=== PATIENT | female | born 1965 | race Hispanic/Latino ===

== ENCOUNTER 2022-04-25 08:56 | Observation (INO) | payer MEDICARE, MEDICAID ==
[~2022-04-25] VITALS: Ht 170.2 cm; Wt 85.6 kg
[2022-04-25] VITALS (7 sets, daily range): BP systolic 114–136; BP diastolic 68–81
[~2022-04-25 08:56] MED LIST: ADV500INH INH; BISO5TAB14 PO; BUSP5TA PO; CALC1CAP31 PO; CETI10CH PO; CLINDAMYCIN 900 MG in IV 1 EA IV ONE; FAMO20TA PO; LETR2.5T2 PO; MAG-400T7 PO; MONT10TA97 PO; SYNT125T PO; TRAZ-257 PO; TUMS750C5 PO; VENTAER INH
[2022-04-25] MEDS ORDERED: dexameTHASONE 4 MG/ML 1ML VIAL (J1100 PER 1MG) As Ordered ONE (09:28)
[2022-04-25] MEDS ORDERED: LIDOCAINE 2% 100MG/5ML SDV (FOR ANES.) As Ordered ONE ×2 (09:29→11:12)
[2022-04-25] MEDS ORDERED: LR 1,000 ML IV SCH ×2 (09:35→12:55)
[2022-04-25] MEDS ORDERED: HEPARIN SOD (PORCINE) 5000UNITS/ML 1ML VIAL/SYRINGE SQ ONE (09:50)
[2022-04-25] MEDS ORDERED: MIDAZOLAM INJ 2MG/2ML VIAL (J2250 PER 1MG) As Ordered ONE (09:52)
[2022-04-25] MEDS ORDERED: fentaNYL 100 MCG/2 ML INJECTION As Ordered ONE (09:53)
[2022-04-25] MEDS ORDERED: GENTAMICIN SULF 80MG/2ML VIAL As Ordered ONE (10:07)
[2022-04-25] MEDS ORDERED: BUPIVACAINE LIPOSOME/PF 1.3% 20ML VIAL (13.3MG/ML)(EXPAREL) As Ordered ONE (10:07)
[2022-04-25] MEDS ORDERED: BUPIVACAINE HCL 0.25% 10ML VIAL As Ordered ONE (10:07)
[2022-04-25] MEDS ORDERED: ROCURONIUM BROMIDE 50 MG/5 ML VIAL As Ordered ONE (11:13)
[2022-04-25] MEDS ORDERED: ALBUTEROL 6.7GM INHALER **FOR ANES. CART/OMNICELL ONLY As Ordered ONE (11:23)
[2022-04-25] MEDS ORDERED: PHENYLephrine 500MCG 5ML (100MCG/ML) SYRINGE As Ordered ONE ×2 (11:26→12:20)
[2022-04-25] MEDS ORDERED: ePHEDrine SULFATE 25 MG/5 ML(5MG/ML) SYRINGE As Ordered ONE (12:04)
[2022-04-25] MEDS ORDERED: ONDANSETRON 4MG 2ML VIAL As Ordered ONE (12:04)
[2022-04-25] MEDS ORDERED: propofoL 200 MG/20 ML VIAL As Ordered ONE (12:04)
[2022-04-25] MEDS ORDERED: ACETAMINOPHEN 1000MG 100ML IV BTL (OFIRMEV) (J0131 PER 10MG) As Ordered ONE (12:08)
[2022-04-25] MEDS ORDERED: SUGAMMADEX SODIUM 500 MG/5 ML VIAL (BRIDION) As Ordered ONE (12:18)
[2022-04-25] MEDS ORDERED: oxyCODONE 5MG TAB PO PRN (12:55)
[2022-04-25] MEDS ORDERED: ONDANSETRON 4MG 2ML VIAL IV PRN ×2 (12:55→13:00)
[2022-04-25] MEDS ORDERED: HYDROMORPHONE HCL 0.5 MG/ 0.5 ML SYRINGE (J1170 PER 1) IV PRN (12:55)
[2022-04-25] MEDS ORDERED: fentaNYL 100 MCG/2 ML INJECTION IV PRN (12:55)
[2022-04-25] MEDS ORDERED: METOCLOPRAMIDE INJ 10MG/2ML VIAL (J2765 PER 1) IV PRN (12:55)
[2022-04-25] MEDS ORDERED: PERCOCET 5MG/325MG TAB PO PRN ×2 (13:00)
[2022-04-25] MEDS ORDERED: ACETAMINOPHEN TAB 650MG DOSE (2X325MG) PO PRN (13:00)
[2022-04-25] MEDS ORDERED: ALBUTEROL SULFATE 2.5 MG/0.5 ML INH NEB SOLN NEB ONE (16:30)
[2022-04-25] MEDS: traMADol 50 MG TAB PO PRN ×2 (16:41→20:28)
[2022-04-25] MEDS: LR 1,000 ML IV SCH (17:53)
[2022-04-25] MEDS ORDERED: TRAZ-252 PO (18:14)
[2022-04-25] MEDS ORDERED: PRED10TA2 PO (18:14)
[2022-04-25] MEDS ORDERED: KETO2CR TOP (18:14)
[2022-04-25] MEDS ORDERED: BUSP10TA PO (18:14)
[2022-04-25] MEDS ORDERED: BENA25CA4 PO (18:14)
[2022-04-25] MEDS ORDERED: MONT10TA97 PO (18:14)
[2022-04-25] MEDS ORDERED: HOME MED LIST COMPLETE! XX SCH (18:20)
[2022-04-25] MEDS: ADVAIR HFA 230/21MCG INHALER INH SCH (20:05)
[2022-04-25] MEDS: busPIRone 10 MG TAB PO SCH (20:27)
[2022-04-25] MEDS ORDERED: traZODone 100 MG TAB PO SCH (21:00)
[2022-04-26 02:00] VITALS: BP 127/80
[2022-04-26] MEDS: LR 1,000 ML IV SCH (05:40)
[2022-04-26 06:00] VITALS: BP 131/80
[2022-04-26] MEDS ORDERED: LEVOTHYROXINE 125MCG TABLET (0.125MG) PO SCH (06:00)
[2022-04-26] MEDS: ADVAIR HFA 230/21MCG INHALER INH SCH (07:28)
[2022-04-26] MEDS: busPIRone 10 MG TAB PO SCH (08:16)
[2022-04-26] MEDS ORDERED: TRAM50TA2 PO (09:06)
== END 2022-04-26 11:25 | disposition home or self-care (01) ==
LOC: M SDC 08:56 → M ED INP 08:57 → M MS5PR 17:40
PROVIDERS: ADMIT Plastic Surgery Surgery of the Hand; ATTEND Plastic Surgery Surgery of the Hand
DX: Z42.1 Encounter for breast reconstruction following mastectomy (principal); C50.912 Malignant neoplasm of unspecified site of left female breast; N64.81 Ptosis of breast; Z85.71 Personal history of Hodgkin lymphoma; Z92.21 Personal history of antineoplastic chemotherapy; Z92.3 Personal history of irradiation; F17.210 Nicotine dependence, cigarettes, uncomplicated; K21.9 Gastro-esophageal reflux disease without esophagitis; J45.909 Unspecified asthma, uncomplicated; F41.9 Anxiety disorder, unspecified; Z79.51 Long term (current) use of inhaled steroids; Z79.899 Other long term (current) drug therapy; E04.2 Nontoxic multinodular goiter; Z88.0 Allergy status to penicillin
CPT/HCPCS: 19342; 88302; 94640; C9290; G0378; J0131; J1100; J1580; J1644; J2250; J2370; J2405; J3010; L8600

== ENCOUNTER → 2022-06-03 | Outpatient (CLI) | payer MEDICARE, MEDICAID ==
[~2022-06-03] MED LIST changes: +BENA25CA4 PO; +BUSP10TA PO; -CLINDAMYCIN 900 MG in IV 1 EA IV ONE; +FLUT1BLS8; +KETO2CR TOP; +PRED10TA2 PO; +TAMO20TA8 PO; +TRAM50TA2 PO; +TRAZ-252 PO
== END ==
LOC: M WHC 09:14
PROVIDERS: ATTEND Internal Medicine Medical Oncology
DX: Z13.820 Encounter for screening for osteoporosis (principal); M85.88 Other specified disorders of bone density and structure, other site

== ENCOUNTER → 2022-07-02 | Outpatient (CLI) | payer MEDICARE, MEDICAID | LOC: M WHC 09:33 | PROVIDERS: ATTEND Internal Medicine Medical Oncology | DX: Z12.31 Encounter for screening mammogram for malignant neoplasm of breast (principal); Z85.3 Personal history of malignant neoplasm of breast | CPT/HCPCS: 77065; G0279 ==

== ENCOUNTER 2022-12-05 08:50 | Observation (INO) | payer MEDICARE, MEDICAID ==
[2022-12-05] VITALS (7 sets, daily range): BP systolic 101–142; BP diastolic 66–93
[~2022-12-05] VITALS: Ht 170.2 cm; Wt 84.8 kg
[~2022-12-05 08:50] MED LIST changes: +CETI-24 PO; +CLINDAMYCIN 900 MG in IV 1 EA IV ONE; -FLUT1BLS8; +FLUT1BLS8 PO; +ROSU10TA6 PO; +TEMA7.5C PO
[2022-12-05] MEDS ORDERED: LIDOCAINE 2% 100MG/5ML SDV (FOR ANES.) As Ordered ONE (09:11)
[2022-12-05] MEDS ORDERED: MIDAZOLAM INJ 2MG/2ML VIAL As Ordered ONE (09:11)
[2022-12-05] MEDS ORDERED: propofoL 200 MG/20 ML VIAL As Ordered ONE (09:11)
[2022-12-05] MEDS ORDERED: ONDANSETRON 4MG 2ML VIAL As Ordered ONE (09:11)
[2022-12-05] MEDS ORDERED: fentaNYL 250 MCG/5 ML INJECTION As Ordered ONE (09:11)
[2022-12-05] MEDS ORDERED: LIDOCAINE 5% OINT 30GM TUBE As Ordered ONE (12:29)
[2022-12-05] MEDS ORDERED: SEVOFLURANE INHAL SOLN 250 ML BTL As Ordered ONE (12:29)
[2022-12-05] MEDS ORDERED: LIDOCAINE 1% MDV 20ML VIAL As Ordered ONE (12:34)
[2022-12-05] MEDS ORDERED: EPINEPHrine INJ 1 MG/ML 1ML AMP As Ordered ONE (12:35)
[2022-12-05] MEDS ORDERED: BUPIVACAINE LIPOSOME/PF 1.3% 20ML VIAL (13.3MG/ML)(EXPAREL) As Ordered ONE (12:44)
[2022-12-05] MEDS ORDERED: BUPIVACAINE HCL 0.25% 10ML VIAL As Ordered ONE (12:44)
[2022-12-05] MEDS ORDERED: ceFAZolin 1GM VIAL As Ordered ONE (12:45)
[2022-12-05] MEDS ORDERED: ACETAMINOPHEN 1000MG 100ML IV BAG As Ordered ONE (13:45)
[2022-12-05] MEDS ORDERED: HYDROmorphone HCL 2MG/ML 1ML VIAL As Ordered ONE (14:03)
[2022-12-05] MEDS ORDERED: ePHEDrine SULFATE 25 MG/5 ML(5MG/ML) SYRINGE As Ordered ONE (14:15)
[2022-12-05] MEDS ORDERED: traMADol 50 MG TAB PO PRN (15:05)
[2022-12-05] MEDS ORDERED: ACETAMINOPHEN TAB 650MG DOSE (2X325MG) PO PRN (15:05)
[2022-12-05] MEDS ORDERED: fentaNYL 100 MCG/2 ML INJECTION IV PRN (15:05)
[2022-12-05] MEDS ORDERED: ONDANSETRON 4MG 2ML VIAL IV PRN ×2 (15:05)
[2022-12-05] MEDS ORDERED: oxyCODONE 5MG TAB PO PRN (15:05)
[2022-12-05] MEDS ORDERED: LR 1,000 ML IV SCH (15:05)
[2022-12-05] MEDS ORDERED: FAMOTIDINE 20 MG TAB PO PRN (15:05)
[2022-12-05] MEDS ORDERED: PERCOCET 5MG/325MG TAB PO PRN (15:05)
[2022-12-05] MEDS ORDERED: LEVALBUTEROL 1.25MG 0.5ML CONCENTRATE NEB INH ONE (15:10)
[2022-12-05] MEDS: HYDROMORPHONE HCL 0.5 MG/ 0.5 ML SYRINGE IV PRN ×2 (15:15→15:23)
[2022-12-05] MEDS ORDERED: KETO2CR TOP (16:43)
[2022-12-05] MEDS ORDERED: TEMA30CA PO (16:43)
[2022-12-05] MEDS ORDERED: OMEP-173 PO (16:43)
[2022-12-05] MEDS ORDERED: HYDR2.5C TOP (16:43)
[2022-12-05] MEDS ORDERED: ALBU2.5V10 INH (16:43)
[2022-12-05] MEDS ORDERED: TACR0.1O TOP (16:43)
[2022-12-05] MEDS ORDERED: HOME MED LIST COMPLETE! XX SCH (16:45)
[2022-12-05] MEDS: LR 1,000 ML IV SCH (17:52)
[2022-12-05] MEDS: ALBUTEROL 90 MCG/ACT 8GM HFA INHALER INH SCH (20:11)
[2022-12-05] MEDS: CETIRIZINE (ZyrTEC) 10 MG TAB PO SCH (20:22)
[2022-12-05] MEDS: CALCITRIOL 0.25 MCG CAP (S0169) PO SCH (20:22)
[2022-12-06 02:00] VITALS: BP 115/69
[2022-12-06] MEDS: LR 1,000 ML IV SCH (05:42)
[2022-12-06 06:00] VITALS: BP 128/89
[2022-12-06] MEDS ORDERED: LEVOTHYROXINE 125MCG TABLET (0.125MG) PO SCH (06:00)
[2022-12-06] MEDS: ALBUTEROL 90 MCG/ACT 8GM HFA INHALER INH SCH ×2 (07:24→11:32)
[2022-12-06] MEDS: CETIRIZINE (ZyrTEC) 10 MG TAB PO SCH (08:51)
[2022-12-06] MEDS: CALCITRIOL 0.25 MCG CAP (S0169) PO SCH (08:51)
[2022-12-06] MEDS ORDERED: MONTELUKAST 10 MG TAB PO SCH (09:00)
[2022-12-06] MEDS ORDERED: ROSUVASTATIN 10 MG TAB (CRESTOR) PO SCH (09:00)
== END 2022-12-06 13:44 | disposition home or self-care (01) ==
LOC: M SDC 08:50 → M MS5PR 08:51
PROVIDERS: ADMIT Plastic Surgery Surgery of the Hand; ATTEND Plastic Surgery Surgery of the Hand
DX: N65.1 Disproportion of reconstructed breast (principal); Z85.3 Personal history of malignant neoplasm of breast; I25.2 Old myocardial infarction; F17.210 Nicotine dependence, cigarettes, uncomplicated; E03.9 Hypothyroidism, unspecified; K21.9 Gastro-esophageal reflux disease without esophagitis; F41.9 Anxiety disorder, unspecified; Z92.3 Personal history of irradiation; Z92.21 Personal history of antineoplastic chemotherapy; Z85.71 Personal history of Hodgkin lymphoma; Z88.0 Allergy status to penicillin; Z79.899 Other long term (current) drug therapy; Z79.51 Long term (current) use of inhaled steroids
CPT/HCPCS: 15771; 19316; 94640; 96374; 96375; 96376; C9290; G0378; J1100; J1170; J2250; J2405; J3010